=== PATIENT | female | born 1955 | race Two or more races ===

== ENCOUNTER → 2018-03-12 | Outpatient (CLI) | payer OTHER | END | disposition home or self-care (01) | LOC: MRI 03-11 11:15 | DX: M48.061 Spinal stenosis, lumbar region without neurogenic claudication (principal) | CPT/HCPCS: 72148 ==

== ENCOUNTER 2018-06-06 08:46 | Outpatient (CLI) | payer OTHER | END 2018-06-06 10:22 | disposition home or self-care (01) | LOC: LAB 08:46 | DX: D64.89 Other specified anemias (principal); J06.9 Acute upper respiratory infection, unspecified; I10 Essential (primary) hypertension; N39.8 Other specified disorders of urinary system; M48.07 Spinal stenosis, lumbosacral region; D68.8 Other specified coagulation defects; M51.17 Intervertebral disc disorders with radiculopathy, lumbosacral region; M51.16 Intervertebral disc disorders with radiculopathy, lumbar region; A21 Tularemia; M54.5 Low back pain ==

== ENCOUNTER 2018-06-06 10:58 | Outpatient (CLI) | payer OTHER | END 2018-06-06 11:10 | disposition home or self-care (01) | LOC: RAD 10:58 | DX: M46.08 Spinal enthesopathy, sacral and sacrococcygeal region (principal); M43.16 Spondylolisthesis, lumbar region; J16.0 Chlamydial pneumonia ==